=== PATIENT | female | born 2000 | race Caucasian/White ===

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

== ENCOUNTER → 2021-02-26 | Outpatient (CLI) | payer OTHER ==
--- NOTE | 2021-02-26 17:06 | KCIC ---
EXAM: Pelvic ultrasound HISTORY: Pelvic pain. COMPARISON: None. FINDINGS: Sonographic evaluation of the pelvis was performed transabdominally. The patient declined a transvaginal examination. The bladder is decompressed. This significantly limits visualization of the uterus, which is not well seen beyond the cervix. Neither ovary could be visualized currently. There is no gross free fluid. IMPRESSION: 1. Essentially nondiagnostic examination. Recommend a repeat study with full bladder distention when feasible. Electronically signed by: Montse Viramontes MD (02/26/2021 5:03 PM) [id number]
== END ==
LOC: KCIC US 15:06
PROVIDERS: ATTEND Nurse Practitioner Family
DX: N32.89 Other specified disorders of bladder (principal); R10.2 Pelvic and perineal pain
CPT/HCPCS: 76856